=== PATIENT | male | born 2000 | race Caucasian/White ===

== ENCOUNTER 2020-08-19 09:23 | Emergency (ER) | payer MEDICAID ==
[~2020-08-19] VITALS: Ht 172.7 cm; Wt 101.2 kg
[2020-08-19 09:31] VITALS: Ht 172.7 cm; Wt 101.2 kg
[2020-08-19 10:54] LABS: BASOPHIL % 0.4 % (0.2-1.5); PLATELET COUNT 200 x10^3mcL (152-348)
[2020-08-19 10:57] LABS: CALCIUM 9.4 mg/dL (8.5-10.1); CARBON DIOXIDE 27.9 mmol/L (21-32); CHLORIDE SERUM 99 mmol/L (98-107); CREATININE SERUM 0.7 mg/dL (0.7-1.3); GFR1 > 60 mL/min; GLUCOSE SERUM 101 mg/dL (74-106); POTASSIUM SERUM 3.8 mmol/L (3.5-5.1); SODIUM SERUM 137 mmol/L (136-145)
[2020-08-19 11:02] LABS: ALBUMIN 4.2 g/dL (3.4-5.0); ALKALINE PHOSPHATASE 127 U/L (46-116); ALT/SGPT 238 U/L (16-63); AST/SGOT 89 U/L (15-37); BILIRUBIN TOTAL 0.6 mg/dL (0.20-1.00); LIPASE 60 IU/L (73-393); TOTAL PROTEIN, SERUM 7.9 g/dL (6.4-8.2)
[2020-08-19] MEDS ORDERED: ZOF4 SL (11:22)
[2020-08-19] MEDS ORDERED: ANTACID PLUS A PO (11:22)
[2020-08-19 11:35] VITALS: BP 130/90
== END 2020-08-19 11:35 | disposition home or self-care (01) ==
LOC: ED 09:23
PROVIDERS: Emergency Medicine
DX: K92.0 Hematemesis (principal); K29.70 Gastritis, unspecified, without bleeding